=== PATIENT | female | born 1990 | race Caucasian/White ===

== ENCOUNTER 2019-07-07 18:25 | Emergency (ER) | payer MEDICAID ==
[~2019-07-07] VITALS: Ht 154.9 cm; Wt 54.5 kg
[~2019-07-07 18:25] MED LIST: ALIGN; FERROUS SULFATE65 MG PO; OSCAL 500 TAB500 MG PO
[2019-07-07 18:33] VITALS: TEMP 98.2
[2019-07-07] MEDS ORDERED: PHENERGAN25 MG RC (19:58)
[2019-07-07] MEDS ORDERED: PHENERGAN 25 TA25 MG PO (19:58)
[2019-07-07] MEDS ORDERED: TAMIFLU 75MG75 MG PO (19:58)
[2019-07-07 21:35] VITALS: BP 111/56; PULSE 99
== END 2019-07-07 21:35 | disposition home or self-care (01) ==
LOC: COL.ER 18:25
DX: J11.1 Influenza due to unidentified influenza virus with other respiratory manifestations (principal)
CPT/HCPCS: J2765; J7030

== ENCOUNTER 2019-09-21 07:39 | Inpatient (IN) | payer MEDICAID ==
[~2019-09-21] VITALS: Ht 154.9 cm; Wt 57.3 kg
[~2019-09-21 07:39] MED LIST changes: +PHENERGAN 25 TA25 MG PO; +PHENERGAN25 MG RC; +TAMIFLU 75MG75 MG PO
[2019-09-22] VITALS (17 sets, daily range): BP systolic 102–126; BP diastolic 43–88; PULSE 60–96; TEMP 97–98.6
--- NOTE | 2019-09-22 09:20 | NUR ---
Patient ambulatory onto unit for scheduled section. Patient mother here as support person, FOB not involved. Patient oriented to room and plan of care. EFMs on, VS taken. IV started. Assessment completed. Consents signed. Patient reports good movement, denies contractions, vaginal bleeding, or leaking of fluid.
[2019-09-22] MEDS ORDERED: PRENATAL VITAMI1 TA3 PO (09:32)
[2019-09-22] MEDS ORDERED: TUMS500 MG PO (09:33)
[2019-09-22] MEDS ORDERED: TYLENOL 325MG325 MG PO (09:35)
[2019-09-22 09:51] LABS: BASO % 0.3 % (0.0-2.0); EOS % 0.5 % (0-4.0); GRAN # 4.9 (1.4-6.5); GRAN % 65.5 % (42.2-75.2); HEMOGLOBIN 11.4 g/dl (12.5-16.0); LYMPH # 1.7 (1.2-3.4); LYMPH % 22.6 % (20.0-51.0); MEAN CELL VOLUME 87 fl (80.0-100.0); MEAN CORPUSCULAR HEMOGLOBIN 28 pg (27.0-31.0); MEAN CORPUSCULAR HGB CONC 32 g/dl (33.0-37.0); MEAN PLATELET VOLUME 11.8 fl (7.4-10.4); MONO # 0.8 (0.1-0.6); MONO % 10.2 % (1.7-9.3); PLATELET COUNT 216 K/mm3 (130-400); RED BLOOD COUNT 4.07 M/mm3 (4.10-5.30); REDCELL DISTRIBUTION WIDTH-CV 12.5 % (11.5-14.5)
[2019-09-22 09:54] LABS: HEMATOCRIT 35.2 % (37.0-47.0)
--- NOTE | 2019-09-22 10:25 | NUR ---
Patient ambulatory to OR with this RN at side.
--- NOTE | 2019-09-22 11:30 | NUR ---
Patient into PACU via bed. This RN remains at bedside.
--- NOTE | 2019-09-22 12:00 | NUR ---
Patient into Room 210 via bed. Oriented to room and plan of care. Patient mother remains at bedside. Call light within reach.
[2019-09-23 01:00] VITALS: BP 102/55; PULSE 72; TEMP 98.6
[2019-09-23 05:00] VITALS: BP 103/66; PULSE 71; TEMP 98.4
[2019-09-23 08:00] VITALS: BP 111/68; PULSE 80; TEMP 98
[2019-09-23] MEDS ORDERED: PERCOCET 325 MG1 TA2 PO (08:11)
[2019-09-23] MEDS ORDERED: MOTRIN 800800 MG/TAB PO (08:11)
[2019-09-23 16:25] VITALS: BP 106/58; PULSE 67; TEMP 98
[2019-09-23 19:00] VITALS: BP 108/64; PULSE 74; TEMP 98.2
--- NOTE | 2019-09-23 20:00 | NUR ---
Pt reports "my migraine is a little better, it's only a 4 now" Discussed increasing caffeine intact, adding aspirin if needed.Verbalizes understanding
[2019-09-24 07:00] VITALS: BP 113/63; PULSE 66; TEMP 97.7
--- NOTE | 2019-09-24 07:15 | NUR ---
Rests in bed, alert. Calls out for a bottle. Bottle given. Denies any discomfort at this time.
[2019-09-24] MEDS ORDERED: NORCO 325 MG-51 TAB PO (08:23)
--- NOTE | 2019-09-24 09:32 | NUR ---
SW received a social insurance analyst referral from OB for the patient due to FOB not involved, bipolar/anxiety/depression and does not have full custody of her 11 [id number]. KARENA staffed with the patient's nurse and she states that this is the first day with the patient but what she sees the patient is appropriate with the baby and the grandmother is "helping a lot." The analytics senior manager report the baby is healthy and can go home. SW met with the patient and the patient's mother. The patient has a carseat and other things the baby needs. The patient states she has WIC and talked to them today about getting formula for the baby. The patient has taken time off work and will be receiving rowe assistance for the next two months. The FOB is not involved. SW discussed options for child support. The patient states she will go to [facility] is she decides to pursue it. The patient states she has shared custody of her son. He lives in [place] and she sees him when ever she wants. The patient receives weekly talk therapy at the [facility] in [place]. Her last appointment was two weeks ago and she states she will make an appointment soon. The patient's supports are her mother and sister. The mother stayed with the patient during this hospitalziation. KARENA collaborated the above information with the patient's nurse.
--- NOTE | 2019-09-24 11:00 | NUR ---
Rests on bench, changing babies clothes. Discharge instructions given, verbalizes understanding. 1025 Ibuprofen 800 mg given as ordered.
== END 2019-09-24 11:40 | disposition home or self-care (01) | DRG 788 ==
LOC: OB 09-22 09:10 → LDR 09-22 16:11 → OB 09-24 11:40
PROVIDERS: ADMIT Obstetrics & Gynecology
PROC: 10D00Z1 Extraction of Products of Conception, Low, Open Approach (ICD-10-PCS; principal; 2019-09-22)
DX: O44.03 Complete placenta previa NOS or without hemorrhage, third trimester (principal); Z3A.39 39 weeks gestation of pregnancy; Z37.0 Single live birth; O99.344 Other mental disorders complicating childbirth; F41.8 Other specified anxiety disorders
CPT/HCPCS: J0690; J2210; J2370; J2405; J2590; J3010; J7120

== ENCOUNTER → 2021-03-28 | Outpatient (CLI) | payer MEDICAID ==
[~2021-03-28] MED LIST changes: +MOTRIN 800800 MG/TAB PO; +NORCO 325 MG-51 TAB PO; +PERCOCET 325 MG1 TA2 PO; +PRENATAL VITAMI1 TA3 PO; +TUMS500 MG PO; +TYLENOL 325MG325 MG PO
== END ==
LOC: COL.RAD 14:00
DX: M25.561 Pain in right knee (principal); M25.562 Pain in left knee

== ENCOUNTER 2024-02-13 16:15 | Emergency (ER) | payer MEDICAID ==
[~2024-02-13] VITALS: Ht 154.9 cm; Wt 63.6 kg
[2024-02-13 16:19] VITALS: TEMP 98.2
[2024-02-13 16:36] LABS: BASO % 0.5 % (0.0-2.0); EOS % 0.5 % (0.0-4.0); GRAN # 3.9 K/mm3 (1.4-6.5); GRAN % 60.1 % (42.2-75.2); HEMATOCRIT 45.8 % (37.0-47.0); HEMOGLOBIN 15.7 g/dl (12.5-16.0); LYMPH % 30.3 % (20.0-51.0); MEAN CELL VOLUME 86 fl (80.0-100.0); MEAN CORPUSCULAR HEMOGLOBIN 30 pg (27-31); MEAN CORPUSCULAR HGB CONC 34 g/dl (33.0-37.0); MEAN PLATELET VOLUME 11.3 fl (7.4-10.4); MONO # 0.5 K/mm3 (0.1-0.6); MONO % 8.3 % (1.7-9.3); PLATELET COUNT 260 K/mm3 (130-400); RED BLOOD COUNT 5.31 M/mm3 (4.10-5.30); REDCELL DISTRIBUTION WIDTH-CV 12.6 % (11.5-14.5)
[2024-02-13 16:40] LABS: INR 1.1 (0.8-3.0)
[2024-02-13 16:42] LABS: PARTIAL THROMBOPLASTIN TIME 31.4 SECONDS (26.0-37.0)
[2024-02-13] MEDS ORDERED: LR 1,000 ML IV ONE (16:45)
[2024-02-13] MEDS ORDERED: Ondansetron 4 MG/2 ML VIAL IV ONE (16:45)
[2024-02-13 16:56] LABS: C-REACTIVE PROTEIN 0.06 mg/dL (0.00-0.50)
[2024-02-13 17:00] LABS: ALANINE AMINOTRANSFERASE 17 U/L (0-55); ALBUMIN 4.3 g/dL (3.5-5.0); ALKALINE PHOSPHATASE 46 U/L (40-150); ANION GAP 9 mmol/L (7-16); AST,SGOT 20 U/L (5-34); BILIRUBIN,TOTAL 0.5 mg/dL (0.2-1.2); BLOOD UREA NITROGEN 12 mg/dL (7-19); CALCIUM 9.5 mg/dL (8.4-10.2); CHLORIDE 109 mEq/L (98-107); CREATININE, serum 0.76 mg/dL (0.57-1.11); GLUCOSE 106 mg/dL (70-99); MAGNESIUM 2.1 mg/dL (1.6-2.6); SODIUM 139 mEq/L (136-145); TOTAL PROTEIN 7.9 g/dl (6.2-8.1)
[2024-02-13 17:09] LABS: TROPONIN-I < 0.010 ng/mL (0.00-0.033)
[2024-02-13 18:49] VITALS: BP 103/70; PULSE 74
== END 2024-02-13 18:50 | disposition home or self-care (01) ==
LOC: COL.ER 16:15
PROVIDERS: Family Medicine
DX: R07.89 Other chest pain (principal)
CPT/HCPCS: J2405; J7120